=== PATIENT | female | born 1995 ===

== ENCOUNTER 2021-04-23 20:24 | Outpatient (CLI) | payer BC ==
[~2021-04-23] VITALS: Ht 170.2 cm; Wt 56.0 kg
[2021-04-23] MEDS ORDERED: MISOPROSTOL 25 MCG TABLET ONE (21:34)
== END 2021-04-23 22:57 | disposition home or self-care (01) ==
LOC: LDOP 20:24
PROVIDERS: ATTEND Obstetrics & Gynecology
DX: O26.893 Other specified pregnancy related conditions, third trimester (principal); Z3A.28 28 weeks gestation of pregnancy
CPT/HCPCS: 59025